=== PATIENT | female | born 1960 | race African-American/Black ===

== ENCOUNTER 2022-09-19 12:00 | Inpatient (IN) | payer BC ==
[2022-09-19 14:28] VITALS: BMI 19.9
[2022-09-19] MEDS ORDERED: MAGNESIUM HYDROX 2400MG/30ML ORAL SUSPENSION 30 ML CUP PO PRN (15:42)
[2022-09-19] MEDS ORDERED: ONDANSETRON *ODT* 4 MG TABLET SL PRN (15:42)
[2022-09-19] MEDS ORDERED: BENZONATATE 200 MG CAPSULE PO PRN (15:42)
[2022-09-19] MEDS ORDERED: NICOTINE 21 MG/24 HOURS TOPICAL PATCH TD PRN (15:42)
[2022-09-19] MEDS ORDERED: IBUPROFEN 400 MG TABLET (FP) PO PRN (15:42)
[2022-09-19] MEDS ORDERED: hydrOXYzine PAMOATE 25 MG CAPSULE (FP) PO PRN (15:42)
[2022-09-19] MEDS ORDERED: NICOTINE POLACRILEX 4 MG GUM BUC PRN (15:42)
[2022-09-19] MEDS ORDERED: IBUPROFEN 600 MG TABLET (FP) PO PRN (15:42)
[2022-09-19] MEDS ORDERED: ACETAMINOPHEN 325 MG TABLET (FP) PO PRN (15:42)
[2022-09-19] MEDS ORDERED: MAG HYDROX/AL HYDROX/SIMETH 30 ML UNIT-DOSE CUP PO PRN (15:42)
[2022-09-19] MEDS ORDERED: DICYCLOMINE HCL 10 MG CAPSULE PO PRN (15:42)
[2022-09-19] MEDS ORDERED: guaiFENesin 600 MG TABLET.ER (FP) PO PRN (15:42)
[2022-09-19] MEDS ORDERED: NICOTINE 10 MG CARTRIDGE (INHALER) IH PRN (15:42)
[2022-09-19] MEDS ORDERED: POLYETHYLENE GLYCOL (HEALTHYLAX) 3350 17 GM PACKET PO PRN (15:42)
[2022-09-19] MEDS ORDERED: BENZOCAINE/MENTHOL (CHLORASEPTIC ) LOZENGE MM PRN (15:42)
[2022-09-19] MEDS ORDERED: NALOXONE HCL 0.4 MG/ML VIAL IM PRN (15:42)
[2022-09-19] MEDS ORDERED: LOPERAMIDE HCL 2 MG CAPSULE PO PRN (15:42)
[2022-09-19] MEDS ORDERED: NALOXONE HCL (KLOXXADO) 8 MG SPRAY NS PRN (15:42)
[2022-09-19] MEDS ORDERED: BISMUTH SUBSALICYLATE 524 MG/30 ML PO PRN (15:42)
[2022-09-19] MEDS ORDERED: ALBUTEROL SO4 HFA INHALER IH PRN (16:12)
[2022-09-19] MEDS: LORazepam 1 MG TABLET PO SCH ×2 (19:28→22:31)
[2022-09-19] MEDS: MELATONIN 5 MG TABLETS PO SCH (22:28)
[2022-09-19] MEDS: THIAMINE HCL 100 MG TABLET (FP) PO SCH (22:29)
[2022-09-19] MEDS: BUDESONIDE/FORMETEROL FUMARATE 160/4.5 mcg INHALER IH SCH (22:30)
[2022-09-19] MEDS: METHOCARBAMOL 500 MG TABLET PO PRN (22:36)
[2022-09-20] MEDS: METHOCARBAMOL 500 MG TABLET PO PRN ×2 (05:14→18:07)
[2022-09-20] MEDS: LORazepam 1 MG TABLET PO SCH ×4 (05:14→22:45)
[2022-09-20 10:07] LABS: HEMATOCRIT 32.8 % (32.4-45.2); HEMOGLOBIN 10.7 GM/dL (10.7-15.3); MCHC 32.6 g/dl (32.0-36.0); MEAN CELL VOLUME 82.8 fl (80-96); MEAN PLT VOLUME 7.8 fl (7.5-11.1); PLATELET COUNT 199 10^3/uL (134-434); RBC 3.97 M/mm3 (3.60-5.2); RDW 15.1 % (11.6-15.6); WHITE BLOOD COUNT 5.1 K/mm3 (4.0-10.0)
[2022-09-20] MEDS: PRENATAL VITAMINS W/ FOLIC ACID TABLET (FP) PO SCH (10:51)
[2022-09-20] MEDS: BUDESONIDE/FORMETEROL FUMARATE 160/4.5 mcg INHALER IH SCH ×2 (10:51→22:45)
[2022-09-20] MEDS ORDERED: methaDONE HCL 10 MG TABLET PO SCH (11:30)
[2022-09-20 12:38] LABS: ALBUMIN 2.6 g/dl (3.4-5.0); BLOOD UREA NITROGEN 19.5 mg/dL (7-18); CALCIUM 8.9 mg/dL (8.5-10.1)
[2022-09-20 12:41] LABS: CREATININE 0.8 mg/dL (0.55-1.3)
[2022-09-20 12:43] LABS: BILIRUBIN,TOTAL 0.3 mg/dL (0.2-1)
[2022-09-20] MEDS: LORazepam 1 MG TABLET PO PRN (13:13)
[2022-09-20] MEDS: LISINOPRIL 10 MG TABLET PO SCH (13:14)
[2022-09-20] MEDS: MELATONIN 5 MG TABLETS PO SCH (22:45)
[2022-09-20] MEDS: ATORVASTATIN CA 20 MG TABLET (FP) PO SCH (22:45)
[2022-09-20] MEDS: THIAMINE HCL 100 MG TABLET (FP) PO SCH (22:45)
[2022-09-21] MEDS: LORazepam 1 MG TABLET PO SCH ×4 (05:28→22:25)
[2022-09-21] MEDS: LORazepam 1 MG TABLET PO PRN ×2 (07:53→14:49)
[2022-09-21] MEDS: BUDESONIDE/FORMETEROL FUMARATE 160/4.5 mcg INHALER IH SCH ×2 (10:21→22:24)
[2022-09-21] MEDS: LISINOPRIL 10 MG TABLET PO SCH (10:22)
[2022-09-21] MEDS: PRENATAL VITAMINS W/ FOLIC ACID TABLET (FP) PO SCH (10:22)
[2022-09-21] MEDS: METHOCARBAMOL 500 MG TABLET PO PRN (18:13)
[2022-09-21] MEDS: MELATONIN 5 MG TABLETS PO SCH (22:25)
[2022-09-21] MEDS: THIAMINE HCL 100 MG TABLET (FP) PO SCH (22:25)
[2022-09-21] MEDS: ATORVASTATIN CA 20 MG TABLET (FP) PO SCH (22:25)
[2022-09-22] MEDS ORDERED: LORazepam 0.5 MG TABLET PO PRN
[2022-09-22] MEDS: LORazepam 0.5 MG TABLET PO SCH ×2 (05:15→10:11)
[2022-09-22] MEDS: METHOCARBAMOL 500 MG TABLET PO PRN (05:20)
[2022-09-22] MEDS: LISINOPRIL 10 MG TABLET PO SCH (10:11)
[2022-09-22] MEDS: PRENATAL VITAMINS W/ FOLIC ACID TABLET (FP) PO SCH (10:11)
[2022-09-22] MEDS: BUDESONIDE/FORMETEROL FUMARATE 160/4.5 mcg INHALER IH SCH (10:14)
[2022-09-22 13:15] VITALS: BP 154/73; PULSE 86; RESP 18; TEMP 97.8
[2022-09-23] MEDS ORDERED: LORazepam 0.5 MG TABLET PO ONE (05:00)
== END 2022-09-22 11:53 | disposition home or self-care (01) | DRG 773 ==
LOC: YASAS 12:00 → Y3N 16:18
PROVIDERS: ADMIT Allergy & Immunology; ATTEND Surgery
PROC: HZ2ZZZZ Detoxification Services for Substance Abuse Treatment (ICD-10-PCS; principal; 2022-09-19)
DX: F10.230 Alcohol dependence with withdrawal, uncomplicated (principal); F11.20 Opioid dependence, uncomplicated; F14.20 Cocaine dependence, uncomplicated; F17.210 Nicotine dependence, cigarettes, uncomplicated; B18.2 Chronic viral hepatitis C; I10 Essential (primary) hypertension; J43.0 Unilateral pulmonary emphysema [MacLeod's syndrome]; R63.4 Abnormal weight loss; Z68.1 Body mass index [BMI] 19.9 or less, adult; Z86.69 Personal history of other diseases of the nervous system and sense organs
CPT/HCPCS: 36415; 71046-TC-FY; 80053; 82140; 85027; 86780; 93005; 93010; C9803-CS; U0003; U0005

== ENCOUNTER 2024-07-09 11:56 | Inpatient (IN) | payer OTHER ==
[2024-07-09 12:46] VITALS: BMI 18.9
[2024-07-09] MEDS ORDERED: BENZOCAINE/MENTHOL (CHLORASEPTIC ) LOZENGE MM PRN (14:20)
[2024-07-09] MEDS ORDERED: NALOXONE (NARCAN) HCL 4 MG/0.1 ML SPRAY NS PRN (14:20)
[2024-07-09] MEDS ORDERED: BISMUTH SUBSALICYLATE 262 MG/15 ML BTL PO PRN (14:20)
[2024-07-09] MEDS ORDERED: MAGNESIUM HYDROX 2400MG/30ML ORAL SUSPENSION 30 ML CUP PO PRN (14:20)
[2024-07-09] MEDS ORDERED: LOPERAMIDE HCL 2 MG CAPSULE PO PRN (14:20)
[2024-07-09] MEDS ORDERED: POLYETHYLENE GLYCOL (HEALTHYLAX) 3350 17 GM PACKET PO PRN (14:20)
[2024-07-09] MEDS ORDERED: DICYCLOMINE HCL 10 MG CAPSULE PO PRN (14:20)
[2024-07-09] MEDS ORDERED: BENZONATATE 200 MG CAPSULE PO PRN (14:20)
[2024-07-09] MEDS ORDERED: guaiFENesin 600 MG TABLET.ER (FP) PO PRN (14:20)
[2024-07-09] MEDS ORDERED: ACETAMINOPHEN 325 MG TABLET (FP) PO PRN (14:20)
[2024-07-09] MEDS: chlordiazePOXIDE HCL 25 MG CAPSULE PO SCH (17:08)
[2024-07-09] MEDS: MELATONIN 5 MG TABLETS PO SCH (22:09)
[2024-07-09] MEDS: THIAMINE 100 MG TABLET PO SCH (22:09)
[2024-07-09] MEDS: ATORVASTATIN CA 20 MG TABLET (FP) PO SCH (22:10)
[2024-07-09] MEDS: METHOCARBAMOL 500 MG TABLET PO PRN (22:10)
[2024-07-09] MEDS: hydrOXYzine PAMOATE 25 MG CAPSULE (FP) PO PRN (22:10)
[2024-07-10] MEDS ORDERED: PATIENT'S OWN MEDICATION (NON-FORMULARY) (Methadone 140 MG) PO ONE (06:00)
[2024-07-10] MEDS: PRENATAL VITAMINS W/ FOLIC ACID TABLET (FP) PO SCH (09:25)
[2024-07-10] MEDS: LISINOPRIL 10 MG TABLET PO SCH (09:26)
[2024-07-10 10:32] LABS: HEMATOCRIT 37.4 % (32.4-45.2); HEMOGLOBIN 11.6 GM/dL (10.7-15.3); MCH 27.4 pg (25.7-33.7); MEAN CELL VOLUME 88.3 fl (80-96); MEAN PLT VOLUME 8.9 fl (7.5-11.1); PLATELET COUNT 183 10^3/uL (134-434); RBC 4.24 M/mm3 (3.60-5.2); RDW 14.9 % (11.6-15.6); WHITE BLOOD COUNT 6.2 K/mm3 (4.0-10.0)
[2024-07-10] MEDS: levETIRAcetam 250 MG TABLET PO SCH (10:39)
[2024-07-10 10:41] LABS: CHLORIDE 107 mmol/L (98-107); SODIUM 140 mmol/L (136-145)
[2024-07-10 10:48] LABS: ALBUMIN 2.9 g/dl (3.4-5.0); ANION GAP 3 mmol/L (4-13); CALCIUM 8.7 mg/dL (8.5-10.1); CO2 30 mmol/L (21-32)
[2024-07-10 10:49] LABS: BLOOD UREA NITROGEN 30.4 mg/dL (7-18); GLUCOSE,RANDOM 112 mg/dL (74-106)
[2024-07-10 10:51] LABS: CREATININE 1.1 mg/dL (0.55-1.3); SGOT/AST 18 U/L (15-37); SGPT/ALT 18 U/L (13-61)
[2024-07-10 10:52] LABS: BILIRUBIN,TOTAL 0.3 mg/dL (0.2-1); TOT PROT 6.3 g/dl (6.4-8.2)
[2024-07-10 10:54] LABS: ALK PHOS 115 U/L (45-117)
[2024-07-10] MEDS: GABAPENTIN 100 MG CAPSULE PO SCH (13:17)
[2024-07-10] MEDS: IBUPROFEN 600 MG TABLET (FP) PO PRN (13:21)
[2024-07-10] MEDS: chlordiazePOXIDE HCL 25 MG CAPSULE PO PRN (19:02)
[2024-07-10] MEDS: ONDANSETRON *ODT* 4 MG TABLET SL PRN (21:57)
[2024-07-11] MEDS: chlordiazePOXIDE HCL 25 MG CAPSULE PO SCH (05:55)
[2024-07-11] MEDS ORDERED: methaDONE HCL 10 MG TABLET PO ONE (09:37)
[2024-07-11] MEDS: levETIRAcetam 250 MG TABLET PO SCH (11:32)
[2024-07-11] MEDS: chlordiazePOXIDE HCL 10 MG CAPSULE PO SCH (17:38)
[2024-07-12] MEDS ORDERED: chlordiazePOXIDE HCL 10 MG CAPSULE PO PRN
[2024-07-12] MEDS: chlordiazePOXIDE HCL 10 MG CAPSULE PO SCH (05:45)
[2024-07-12] MEDS ORDERED: methaDONE HCL 10 MG TABLET PO SCH (06:00)
[2024-07-12] MEDS: IBUPROFEN 400 MG TABLET (FP) PO PRN (17:32)
[2024-07-13] MEDS: chlordiazePOXIDE HCL 10 MG CAPSULE PO SCH (05:48)
[2024-07-13] MEDS: MAG HYDROX/AL HYDROX/SIMETH 30 ML UNIT-DOSE CUP PO PRN (13:40)
[2024-07-13] MEDS: NICOTINE POLACRILEX 4 MG LOZENGE BC PRN (18:36)
[2024-07-14] MEDS: chlordiazePOXIDE HCL 10 MG CAPSULE PO ONE (05:58)
[2024-07-14 09:12] VITALS: BP 132/72; PULSE 68; RESP 18; TEMP 97.6
== END 2024-07-14 10:24 | disposition home or self-care (01) | DRG 773 ==
LOC: YASAS 11:56 → Y6N 14:46
PROVIDERS: ADMIT Allergy & Immunology; ATTEND Family Medicine Addiction Medicine
PROC: HZ2ZZZZ Detoxification Services for Substance Abuse Treatment (ICD-10-PCS; principal; 2024-07-09)
DX: F10.230 Alcohol dependence with withdrawal, uncomplicated (principal); F11.20 Opioid dependence, uncomplicated; F14.20 Cocaine dependence, uncomplicated; F17.210 Nicotine dependence, cigarettes, uncomplicated; F19.280 Other psychoactive substance dependence with psychoactive substance-induced anxiety disorder; F19.282 Other psychoactive substance dependence with psychoactive substance-induced sleep disorder; B18.1 Chronic viral hepatitis B without delta-agent; B18.2 Chronic viral hepatitis C; E78.00 Pure hypercholesterolemia, unspecified; I10 Essential (primary) hypertension; J43.0 Unilateral pulmonary emphysema [MacLeod's syndrome]; R63.4 Abnormal weight loss; Z68.1 Body mass index [BMI] 19.9 or less, adult; Z62.810 Personal history of physical and sexual abuse in childhood; Z91.410 Personal history of adult physical and sexual abuse; Z63.0 Problems in relationship with spouse or partner; Z63.8 Other specified problems related to primary support group
CPT/HCPCS: 36415; 71046-TC-FY; 80053; 80305; 80307; 82962; 85027; 86780; 93005; 93010; Q0162